=== PATIENT | male | born 1960 | race Caucasian/White ===

== ENCOUNTER 2017-04-28 20:06 | Inpatient (IN) | payer BC ==
[~2017-04-28] VITALS: Ht 182.9 cm; Wt 83.9 kg
[2017-04-28 20:13] VITALS: BP 119/78
--- NOTE | 2017-04-28 20:19 | NUR ---
Patient to bed 08.
[2017-04-28] MEDS ORDERED: ASPIRIN 325 MG TAB PO ONE (20:25)
--- NOTE | 2017-04-28 20:27 | NUR ---
57Y M BIB SELF WAS SEEN HERE TODAY AT 1330 FOR POSSIBLE FOOD POISONING BUT WAS DISCHARGED, RETURNED BACK TO ER WITH C/O BILAT LEG PAIN; PT DENIES ANY CP,SOB AT THE MOMENT; PT IS AAOX4; BREATHING IS EVEN AND UNLABORED;
[2017-04-28] MEDS ORDERED: NACL 0.9% 1,000 ML IV ONE (20:30)
[2017-04-28] MEDS ORDERED: ACETAMINOPHEN 325 MG TAB PO PRN (20:40)
[2017-04-28] MEDS ORDERED: HYDROcodone/APAP 7.5/325 MG 1 TAB PO PRN (20:40)
[2017-04-28] MEDS ORDERED: ONDANSETRON 4 MG/2 ML VIAL IVP PRN (20:40)
[2017-04-28] MEDS ORDERED: NITROGLYCERIN 0.4 MG TAB SL PRN (20:45)
[2017-04-28] MEDS ORDERED: LISINOPRIL 5 MG TAB PO SCH (20:58)
[2017-04-28] MEDS ORDERED: METOPROLOL 25 MG TAB PO SCH (21:00)
[2017-04-28] MEDS ORDERED: ATORVASTATIN 20 MG TAB PO SCH (21:00)
[2017-04-28 21:10] VITALS: BP 104/58
[2017-04-28] MEDS: DOCUSATE SODIUM 100 MG GELCAP PO SCH (21:10)
[2017-04-28] MEDS: NACL 0.9% 1,000 ML IV SCH (21:10)
[2017-04-28] MEDS ORDERED: MECLIZINE 25 MG TAB PO PRN (21:10)
--- NOTE | 2017-04-28 21:10 | NUR ---
ADMITTED A 57M FROM ER. CAME BY GA DUE TO DIZZINESS, WEAKNESS AND ELEVATED TROPONIN. AWAKE,ALERT AND ORIENTED X4. AMBULATORY. ON TELE MONITOR-SB. INITIAL SKIN ASSESSMENT DONE WITH RESIDENT SERVICES DIRECTOR,YOAN . SKIN INTACT. DUE TO DIZZINESS PT PUT HIGH RISK FOR FALL. PT MADE AWARE. PLAN OF CARE DISCUSSED AND VERBALIZED UNDERSTANDING. BED ON LOW POSITION, CALL LIGHT AND URINAL PLACED WITHIN EASY REACH. INSTRUCTED TO CALL IF NEED ANY ASSISTANCE WILL CONTINUE TO MONITOR.
--- NOTE | 2017-04-28 21:10 | NUR ---
BP LOW 104/58, HR 52/MIN. DR. CORTES MADE AWARE. BP MEDS NOT GIVEN. WILL CONTINUE TO MONITOR.
--- NOTE | 2017-04-28 21:15 | NUR ---
Patient will be admitted to care of DR WANG. Admited to TELE 119B. Will go to room 119B. Belongings list completed. Report to KASH FERNANDEZ .
[2017-04-28 21:31] LABS: BARBITURATE, URINE NEG. ng/ml (NEG <=200); BENZODIAZEPINE, URINE NEG. ng/mL (NEG <=200); CANNABINOID, URINE NEG. ng/mL (NEG <=50); COCAINE, URINE NEG. ng/mL (NEG <=300); OPIATE, URINE NEG. ng/mL (NEG <=2000); PHENCYCLIDINE SCREEN,URINE NEG. ng/mL (NEG <=25)
--- NOTE | 2017-04-28 21:45 | NUR ---
US CAROTID BABITA DONE AT BEDSIDE. WILL FOLLOW UP RESULT.
[2017-04-28 21:50] LABS: FREE T4 (FREE THYROXINE) 1.02 ng/dL (0.76-1.46); MAGNESIUM 1.8 mg/dL (1.8-2.4); PHOSPHORUS 3.8 mg/dL (2.5-4.9); THYROID STIMULATING HORMONE 1.22 uIU/mL (0.34-3.74)
[2017-04-28 21:56] LABS: PROTHROMBIN TIME 11.2 secs (10.8-13.4)
--- NOTE | 2017-04-28 23:51 | NUR ---
2ND TROPONIN LEVEL 0.081. DR. CORTES MADE AWARE. NO NEW ORDER MADE.
[2017-04-29 00:14] VITALS: BP 106/60
--- NOTE | 2017-04-29 00:20 | NUR ---
SCD MACHINE APPLIED ON BILATERAL LOWER LEG. PT MADE AWARE OF THE BENEFIT FROM THE MACHINE.
--- NOTE | 2017-04-29 02:10 | NUR ---
MADE ROUNDS. PT ASLEEP. NO S/S OF ANY DISCOMFORT NOR PAIN NOTED. WILL CONTINUE TO MONITOR.
[2017-04-29] MEDS: NACL 0.9% 1,000 ML IV SCH ×2 (03:25→10:20)
[2017-04-29 03:40] VITALS: BP 103/56
--- NOTE | 2017-04-29 03:45 | NUR ---
NO DIZZINESS NOR PAIN NOTED AT THIS TIME.
[2017-04-29] MEDS ORDERED: CYCLOBENZAPRINE 10 MG TAB PO PRN ×2 (04:00→07:27)
[2017-04-29] MEDS ORDERED: TAMS0.4C96 PO ×2 (06:11→07:00)
--- NOTE | 2017-04-29 06:20 | NUR ---
DIRECTOR EXPORT CAME BUT PT REFUSED TO HAVE CT HEAD WITHOUT CONTRAST DONE TODAY. HE SAID HE WANTS TO TALK TO THE MD. WILL ENDORSE TO AM NURSE.
[2017-04-29 06:33] LABS: ANION GAP 8.4 (8-16); CARBON DIOXIDE 28.9 mmol/L (21-32); CREATININE 0.8 mg/dL (0.7-1.3); POTASSIUM 4.3 mmol/L (3.5-5.1)
[2017-04-29 06:40] LABS: HEMATOCRIT 39.9 % (36-52); HEMOGLOBIN 13.2 g/dL (12.0-18.0); MEAN CORPUSCULAR HEMOGLOBIN 32 pg (27-31); MEAN CORPUSCULAR HGB CONC 33 g/dL (33-37); MEAN CORPUSCULAR VOLUME 97 fL (80-94); PLATELET COUNT (AUTO) 167 K/uL (140-450); RED BLOOD CELL COUNT(AUTO) 4.11 MIL/uL (4.20-6.10); RED CELL DISTRIBUTION WIDTH 12.8 % (11.6-13.7); WHITE BLOOD COUNT (AUTO) 4.2 K/uL (4.8-10.8)
[2017-04-29 07:00] LABS: EOSINOPHILS % (MANUAL) 3 % (0-4); LYMPHOCYTES % (MANUAL) 33 % (20-46); MONOCYTES % (MANUAL) 9 % (5-12)
[2017-04-29] MEDS ORDERED: [UNRECOGNIZED DRUG - CODE] PO (07:00)
[2017-04-29] MEDS ORDERED: ALPR0.5T2 PO (07:00)
[2017-04-29] MEDS ORDERED: [UNRECOGNIZED DRUG - CODE] PO (07:00)
--- NOTE | 2017-04-29 07:25 | NUR ---
ENDORSED PT IN STABLE CONDITION TO AM NURSE.
--- NOTE | 2017-04-29 07:27 | NUR ---
RECEIVED REPORT FROM LEATHER SCRAPER RN. PATIENT IS AWAKE, ALERT AND ORIENTED X4, HAS NO SIGNS AND SYMPTOMS OF ACUTE DISTRESS NOTED AT THIS TIME. DENIES ANY CHEST PAIN, DIZZINESS, OR SOB AT THIS TIME. HAS IV TO RIGHT AC 20G, NORMAL SALINE INFUSING AT 100ML/HR. SITE IS CLEAN, DRY, PATENT AND INTACT. DISCUSSED PLAN OF CARE WITH PATIENT AND HE VERBALIZED UNDERSTANDING. BED IN LOWEST POSITION, SIDERAILS UP X2, CALL LIGHT PLACED WITHIN REACH. WILL CONTINUE TO MONITOR.
[2017-04-29 08:00] VITALS: BP 120/78
--- NOTE | 2017-04-29 08:10 | NUR ---
FAXED CONSENT TO RELEASE MEDICAL RECORDS/CT SCAN FROM [facility].
[2017-04-29] MEDS ORDERED: LISINOPRIL 5 MG TAB PO SCH (09:00)
[2017-04-29] MEDS ORDERED: ASPIRIN 81 MG TAB.CHEW PO SCH (09:00)
[2017-04-29] MEDS ORDERED: PANTOPRAZOLE 40 MG INJ VIAL IVP SCH (09:00)
[2017-04-29] MEDS: DOCUSATE SODIUM 100 MG GELCAP PO SCH (09:30)
--- NOTE | 2017-04-29 09:58 | NUR ---
PATIENT HAS BEEN SCREENED AND CATEGORIZED MODERATE NUTRITION RISK. PATIENT WILL BE SEEN WITHIN 3-5 DAYS OF ADMISSION. 05/01/17-05/03/[address]
[2017-04-29] MEDS ORDERED: LORATADINE 10 MG TAB PO SCH (10:35)
[2017-04-29 12:00] VITALS: BP 110/63
--- NOTE | 2017-04-29 15:45 | NUR ---
CM NOTE INITIAL REVIEW FAXED TO [facility] / FAX# [phone], C: [phone], OPT. 2
[2017-04-29 16:00] VITALS: BP 129/71
--- NOTE | 2017-04-29 16:45 | NUR ---
DISCHARGE ORDERS ARE IN PLACE. PATIENT IS IN STABLE CONDITION. GAVE HIM DISCHARGE INSTRUCTIONS TO FOLLOW UP WITH PRIMARY CARE PHYSICIAN AND CRUISE GUIDE. INSTRUCTED HIM TO RESUME TAKING HIS HOME MEDICATIONS AND WHAT SIGNS AND SYMPTOMS TO SEEK EMERGENCY MEDICAL ATTENTION FOR. HAS ALL BELONGINGS. IV SITE HAS BEEN REMOVED. SITE IS CLEAN AND DRY. REMOVED ID BANDS. WILL WALK HIM OUT.
[2017-04-29] MEDS ORDERED: TAMSULOSIN 0.4 MG CAP PO SCH (21:00)
[2017-04-30] MEDS ORDERED: LORATADINE 10 MG TAB PO SCH (09:00)
== END 2017-04-29 16:45 | disposition home or self-care (01) | DRG 74 ==
LOC: MED 20:06 → MTU 20:42
PROVIDERS: ADMIT Family Medicine; ATTEND Family Medicine
DX: G90.9 Disorder of the autonomic nervous system, unspecified (principal); I24.9 Acute ischemic heart disease, unspecified; F41.1 Generalized anxiety disorder; K21.9 Gastro-esophageal reflux disease without esophagitis; M94.0 Chondrocostal junction syndrome [Tietze]; N40.0 Benign prostatic hyperplasia without lower urinary tract symptoms; G89.29 Other chronic pain; R79.89 Other specified abnormal findings of blood chemistry; M54.5 Low back pain; K52.9 Noninfective gastroenteritis and colitis, unspecified; Z81.8 Family history of other mental and behavioral disorders; Z82.49 Family history of ischemic heart disease and other diseases of the circulatory system; Z80.0 Family history of malignant neoplasm of digestive organs
CPT/HCPCS: 36415; 80048; 80305; 82140; 82150; 83036; 83605; 83690; 83735; 83880; 84100; 84439; 84443; 84484; 85025; 85610; 85730; 87081; 93005; 93880; 99285; J7030; Q0092